=== PATIENT | female | born 1960 | race Caucasian/White ===

== ENCOUNTER 2017-02-03 10:32 | Emergency (ER) | payer MEDICARE ==
[~2017-02-03] VITALS: Ht 167.6 cm; Wt 80.0 kg
[2017-02-03 10:39] VITALS: Ht 167.6 cm; Wt 80.0 kg
--- NOTE | 2017-02-03 11:13 | ERD ---
ER Documentation Chief Complaint Date/Time DATE: 02/03/17 TIME: 11:08 Chief Complaint patient here for a tube replacement HPI 56-year-old female history of developmental delay, feeding tube here for feeding tube evaluation. The family member states that the patient was sent to the emergency room by Dr. Piedra. She states that the feeding tube needs to be changed although it is working and not leaking. No reported fevers or chills drainage or discharge. ROS All systems reviewed and are negative except as per history of present illness. FmHx Family History: No diabetes Physical Exam Vitals Vital Signs Date Time Temp Pulse Resp B/P Pulse Ox O2 Delivery O2 Flow Rate FiO2 02/03/17 10:39 96.3 69 20 109/67 96 Physical Exam Const: Well-appearing, no distress Head: Atraumatic Eyes: Normal Conjunctiva ENT: Normal External Ears, Nose and Mouth. Neck: Full range of motion..~ No meningismus. Resp: Clear to auscultation bilaterally Cardio: Regular rate and rhythm, no murmurs Abd: Soft, non tender, non distended. Normal bowel sounds, G-tube in good position, mild excoriation noted around the stoma with no drainage discharge or erythema warmth or tenderness Skin: No petechiae or rashes Back: No midline or flank tenderness Ext: No cyanosis, or edema Neur: Awake and alert Psych: Normal Mood and Affect Procedures/MDM The patient is G-tube is extremely well-appearing without evidence of complication or infection or dislodgment. I spoke to Dr. Piedra, who states that the G-tube is in good position. The description of the G-tube is appropriate for what Dr. Piedra wants. The family was informed and states understanding. Wound care was provided in the emergency room and the patient will be discharged back to assisted living facility. Departure Diagnosis: Primary Impression: Encounter for tube feeding instruction Additional Impression: Encounter for care related to feeding tube Condition: Stable Patient Instructions: PEG Feeding Tube Care: [place] Referrals: LINDA PIEDRA MD Additional Instructions: Call your primary care doctor TOMORROW for an appointment during the next 1 WEEK.Tell the national secretary that you were referred from this facility.See the doctor sooner or return here if your condition worsens before your appointment time. GINNY MENDIOLA MD Feb 03, 2017 11:13
== END 2017-02-03 12:01 | disposition home or self-care (01) ==
LOC: E/R 10:32
DX: Z43.1 Encounter for attention to gastrostomy (principal); F88 Other disorders of psychological development
CPT/HCPCS: 99282